=== PATIENT | male | born 1970 | race Hispanic/Latino ===

== ENCOUNTER 2023-11-09 21:06 | Emergency (ER) | payer OTHER ==
[2023-11-09] MEDS ORDERED: KETOROLAC 30 MG/ML INJ ONE (21:19)
[2023-11-09 21:28] LABS: Absolute Eosinophils 0.2 K/uL (0-0.5); Absolute Lymphocytes (CBC) 2.4 K/uL (0.7-4.9); Absolute Monocytes 0.6 K/uL (0.1-1.3); Absolute Neutrophil 4.4 K/uL (1.8-8.0); Basophils % 0.5 % (0-1.3); Eosinophils % 2.3 % (0-4.4); Hematocrit 44.1 % (39.6-49.0); Hemoglobin 15.2 g/dL (13.6-17.9); Lymphocytes % 31.7 % (15.3-44.8); MCH 32.8 pg (27.0-35.0); MCHC 34.4 g/dL (32.0-36.0); MCV 95.2 fL (80-100); MPV 10.8 fL (7.6-11.3); Monocytes % 7.8 % (3.3-12.3); Neutrophils % 57.7 % (41.7-73.7); Platelets 152 thou/uL (152-406); RBC Red Blood Cell Count 4.64 M/uL (4.33-5.43); Red Cell Distribution Width 13.1 % (12.1-15.2)
--- NOTE | 2023-11-09 21:34 | RAD REPORT ---
EXAM DESCRIPTION: RAD - Chest Single View - 11/09/2023 9:28 pm CLINICAL HISTORY: CHEST PAIN COMPARISON: Chest Single View dated 03/27/2016 FINDINGS: Lines: None. Lungs: No evidence of edema or pneumonia. Pleural: No significant pleural effusions or pneumothorax. Cardiac: The heart size is within normal limits. Mediastinum: Within normal limits. Bones: No acute fractures. Other: None IMPRESSION: No acute cardiopulmonary disease.
[2023-11-09 21:47] LABS: Anion Gap 8.6 mEq/L (5.0-15.0); Potassium 3.6 mEq/L (3.5-5.1); Troponin High Sensitivity 5.7 pg/mL (<58.9)
--- NOTE | 2023-11-10 00:03 | EDPHYS ---
Physician Documentation [facility] Name: Moses Curry Age: 53 yrs Sex: Male : 1970 Arrival Date: 11/09/2023 Time: 21:06 Bed 6 Private MD: ED Physician Jose Rafael Sterling HPI: 11/08 21:08 This 53 yrs old Male presents to ER via Unassigned with complaints of L upper ec2 back pain. 21:08 Patient arrives today for evaluation of left upper back pain is reproducible. Patient ec2 reports no falls injuries or trauma. States that he took a nitroglycerin and this improved him symptoms. Patient reports no difficulty breathing, no chest pain. Denies any abdominal pain. Patient reports he has no cardiac disease, states that he was prescribed this nitroglycerin in case he ever had chest pain. He denies any chest pain.. Historical: - Allergies: 21:12 No Known Allergies; al5 - PMHx: 21:12 high cholesterol; Gastroesophageal reflux disease; Heart murmur; al5 - PSHx: 21:12 Appendectomy; carpal tunnel surgery x2; al5 - Immunization history:: Adult Immunizations up to date. - Infectious Disease History:: Denies. - Social history:: Smoking status: Patient reports the use of cigarette tobacco products, smokes one-half pack cigarettes per day, Patient uses alcohol, had 2.5 beers per patient. ROS: 21:08 Constitutional: as per hpi ec2 Exam: 21:08 Constitutional: GEN: NAD Head: atraumatic Eyes: EOMI Ears: External ears are ec2 normal. CV: regular rate LUNGS: no respiratory distress ABD: non-distended SKIN: no evidence of rashes MSK: no evidence of trauma, reproducible left upper chest wall TTP without deformities or crepitus 21:37 ECG was reviewed by the Attending Physician. ec2 Vital Signs: 21:10 BP 127 / 82; Pulse 74; Resp 18; Temp 98.3; Pulse Ox 99% on R/A; Weight 81.65 kg; Height al5 5 ft. 8 in. ; Pain 2/10; 22:57 BP 112 / 71; Pulse 58; Resp 17; Temp 98.3; Pulse Ox 99% on R/A; Pain 0/10; bm8 11/09 00:14 BP 93 / 59; Pulse 73; Resp 17; Temp 98.3; Pulse Ox 95% ; Pain 0/10; bm8 11/08 21:10 Body Mass Index 27.37 (81.65 kg, 172.72 cm) al5 09/ 21:10 Pain Scale: Adult al5 22:57 Pain Scale: Adult bm8 11/09 00:14 Pain Scale: Adult bm8 [place] Coma Score: 11/08 21:26 Eye Response: spontaneous(4). Motor Response: obeys commands(6). Verbal Response: bm8 oriented(5). Total: 15. 22:57 Eye Response: spontaneous(4). Motor Response: obeys commands(6). Verbal Response: bm8 oriented(5). Total: 15. 11/09 00:14 Eye Response: spontaneous(4). Motor Response: obeys commands(6). Verbal Response: bm8 oriented(5). Total: 15. MDM: 11/08 21:08 Patient medically screened. ec2 21:08 Data reviewed: vital signs. ED course: Patient arrives today for reproducible left ec2 upper back wall pain. Examination remarkable for reproducible upper back pain. Will obtain cardiac workup. With patient tomorrow. Differential includes MSK pain, ACS, doubt PE or dissection.. 21:26 ED course: EKG independently reviewed and interpreted by me, shows normal sinus rhythm, ec2 rate of 69, no acute ST segment elevations, intervals are nonconcerning. . 21:36 ED course: Chest x-ray independently reviewed and interpreted by me, shows no acute ec2 intrathoracic process. . 21:55 ED course: Metabolic profile reassuring, troponin within normal ranges. Will obtain ec2 repeat EKG and troponin.. 23:05 ED course: Repeat EKG independently reviewed and interpreted by me, shows sinus rhythm, ec2 rate of 58, no acute ST segment elevations, intervals are nonconcerning, appears grossly unchanged compared to initial.. 11/09 00:02 ED course: Repeat troponin is static. Will discharge home. Return precautions given. ec2 Suspect MSK pain. . 11/08 21:08 Order name: Basic Metabolic Panel; Complete Time: 21:55 ec2 11/08 21:08 Order name: CBC with Diff; Complete Time: 21:36 ec2 11/08 21:08 Order name: Troponin HS; Complete Time: 21:55 ec2 11/08 22:59 Order name: Troponin HS; Complete Time: 00:02 bm8 11/08 21:08 Order name: XRAY Chest (1 view); Complete Time: 21:36 ec2 11/08 21:08 Order name: EKG; Complete Time: 21:09 ec2 11/08 21:08 Order name: Cardiac monitoring; Complete Time: 21:26 ec2 11/08 21:08 Order name: EKG - Nurse/Tech; Complete Time: 21:26 ec2 11/08 21:08 Order name: IV Saline Lock; Complete Time: 21:26 ec2 11/08 21:08 Order name: Labs collected and sent; Complete Time: 21:26 ec2 11/08 21:08 Order name: O2 Per Protocol; Complete Time: 21:16 ec2 11/08 21:08 Order name: O2 Sat Monitoring; Complete Time: 21:16 ec2 11/08 21:38 Order name: Misc. Order: repeat ekg/trop at 2300; Complete Time: 22:58 ec2 Administered Medications: 11/08 21:26 Drug: Ketorolac IVP 15 mg IVP once Route: IVP; Site: right antecubital; bm8 11/09 00:15 Follow up: Response: No adverse reaction 8 Disposition Summary: 11/10/23 00:03 Discharge Ordered Notes: Location: Home ec2 Condition: Stable ec2 Diagnosis - Back Pain ec2 Followup: ec2 - With: Private Physician - When: - Reason: Re-evaluation by your physician Discharge Instructions: - Discharge Summary Sheet ec2 - Acute Back Pain, Adult ec2 Forms: - Medication Reconciliation Form ec2 - Antibiotic Education ec2 - Prescription Opioid Use ec2 - Patient Portal Instructions ec2 - Leadership Thank You Letter ec2 Prescriptions: - methocarbamol 500 mg Oral tablet - take 2 tablets ORAL route 4 times per day; 20 tablet; Refills: 0, Product ec2 Selection Permitted Signatures: Dispatcher [employer] Jose Rafael John MD MD ec2 Aman Sue, RN RN bm8 Jennifer Garcia RN RN al5
--- NOTE | 2023-11-10 00:03 | ER ---
Nurse's Notes [facility] Name: Moses Curry Age: 53 yrs Sex: Male : 1970 Arrival Date: 11/09/2023 Time: 21:06 Bed 6 Private MD: Diagnosis: Back Pain Presentation: 11/08 21:10 Chief complaint: Patient states: c/o L side back pain that was sharp and stabbing al5 10/10, tender to palpate; states he took a nitro. pain decreased down to a 2/10. Coronavirus screen: At this time, the client does not indicate any symptoms associated with coronavirus-19. Ebola Screen: No symptoms or risks identified at this time. Initial Sepsis Screen: Does the patient meet any 2 criteria? No. Patient's initial sepsis screen is negative. Does the patient have a suspected source of infection? No. Patient's initial sepsis screen is negative. Risk Assessment: Do you want to hurt yourself or someone else? Patient reports no desire to harm self or others. Onset of symptoms was November 09, 2023. 21:10 Method Of Arrival: EMS: [facility] al5 21:10 Acuity: HAILEY 3 al5 Triage Assessment: 21:14 General: Appears in no apparent distress. Behavior is calm, cooperative. Pain: al5 Complains of pain in left low back and left mid back Pain currently is 2 out of 10 on a pain scale. EENT: No signs and/or symptoms were reported regarding the EENT system. Neuro: Level of Consciousness is awake, alert, obeys commands, Oriented to person, place, time, situation. Cardiovascular: Patient's skin is warm and dry. Respiratory: Airway is patent Respiratory effort is even, unlabored, Respiratory pattern is regular, symmetrical. GI: No signs and/or symptoms were reported involving the gastrointestinal system. : No signs and/or symptoms were reported regarding the genitourinary system. Derm: Skin is intact, Skin is pink, warm \T\ dry. normal. Musculoskeletal: Reports pain in left low back and left mid back. Historical: - Allergies: 21:12 No Known Allergies; al5 - PMHx: 21:12 high cholesterol; Gastroesophageal reflux disease; Heart murmur; al5 - PSHx: 21:12 Appendectomy; carpal tunnel surgery x2; al5 - Immunization history:: Adult Immunizations up to date. - Infectious Disease History:: Denies. - Social history:: Smoking status: Patient reports the use of cigarette tobacco products, smokes one-half pack cigarettes per day, Patient uses alcohol, had 2.5 beers per patient. Screenin:26 [facility] ED Fall Risk Assessment (Adult) History of falling in the last 3 months, bm8 including since admission No falls in past 3 months (0 pts) Confusion or Disorientation No (0 pts) Intoxicated or Sedated No (0 pts) Impaired Gait No (0 pts) Mobility Assist Device Used No (0 pt) Altered Elimination No (0 pt) Score/Fall Risk Level 0 - 2 = Low Risk Oriented to surroundings, Maintained a safe environment, Educated pt \T\ family on fall prevention, incl call for assistance when getting out of bed, Assessed \T\ reinforced patient's understanding of fall precautions, Hourly rounding (assess needs \T\ fall precautionary measures) done, Used ambulatory aids as needed (educated on \T\ assisted with), Used gait belt as appropriate. Abuse screen: Denies threats or abuse. Nutritional screening: No deficits noted. Tuberculosis screening: No symptoms or risk factors identified. Assessment: 21:26 Reassessment: Patient appears in no apparent distress at this time. Patient and/or bm8 family updated on plan of care and expected duration. Pain level reassessed. Patient is alert, oriented x 3, equal unlabored respirations, skin warm/dry/pink. General: Appears in no apparent distress. comfortable, Behavior is calm, cooperative, appropriate for age. Pain: Complains of pain in left mid back and left low back Pain currently is 2 out of 10 on a pain scale. Quality of pain is described as sharp. Neuro: No deficits noted. Level of Consciousness is awake, alert, obeys commands, Oriented to person, place, time, situation, Appropriate for age. Cardiovascular: Denies chest pain, Heart tones S1 S2 present Capillary refill < 3 seconds Patient's skin is warm and dry. Rhythm is sinus rhythm. Respiratory: Airway is patent Trachea midline Respiratory effort is even, unlabored, Respiratory pattern is regular, symmetrical, Breath sounds are clear bilaterally. GI: No signs and/or symptoms were reported involving the gastrointestinal system. : No signs and/or symptoms were reported regarding the genitourinary system. EENT: No signs and/or symptoms were reported regarding the EENT system. Derm: No signs and/or symptoms reported regarding the dermatologic system. Musculoskeletal: Circulation, motion, and sensation intact. Capillary refill < 3 seconds, in bilateral fingers. toes. Range of motion: intact in all extremities, Reports pain in left mid back and left low back Pain is 2 out of 10 on a pain scale. 22:57 Reassessment: Patient appears in no apparent distress at this time. Patient and/or bm8 family updated on plan of care and expected duration. Pain level reassessed. Patient is alert, oriented x 3, equal unlabored respirations, skin warm/dry/pink. Patient denies pain at this time. Patient states feeling better. Patient states symptoms have improved. 11/09 00:14 Reassessment: Patient appears in no apparent distress at this time. Patient and/or bm8 family updated on plan of care and expected duration. Pain level reassessed. Patient is alert, oriented x 3, equal unlabored respirations, skin warm/dry/pink. Patient denies pain at this time. Patient states feeling better. Patient states symptoms have improved. Vital Signs: 11/08 21:10 BP 127 / 82; Pulse 74; Resp 18; Temp 98.3; Pulse Ox 99% on R/A; Weight 81.65 kg; Height al5 5 ft. 8 in. ; Pain 2/10; 22:57 BP 112 / 71; Pulse 58; Resp 17; Temp 98.3; Pulse Ox 99% on R/A; Pain 0/10; bm8 11/09 00:14 BP 93 / 59; Pulse 73; Resp 17; Temp 98.3; Pulse Ox 95% ; Pain 0/10; bm8 11/08 21:10 Body Mass Index 27.37 (81.65 kg, 172.72 cm) al5 11/08 21:10 Pain Scale: Adult al5 22:57 Pain Scale: Adult bm8 11/09 00:14 Pain Scale: Adult bm8 [place] Coma Score: 11/08 21:26 Eye Response: spontaneous(4). Motor Response: obeys commands(6). Verbal Response: bm8 oriented(5). Total: 15. 22:57 Eye Response: spontaneous(4). Motor Response: obeys commands(6). Verbal Response: bm8 oriented(5). Total: 15. 11/09 00:14 Eye Response: spontaneous(4). Motor Response: obeys commands(6). Verbal Response: bm8 oriented(5). Total: 15. ED Course: 11/08 21:08 Patient arrived in ED. ec2 21:08 Jose Rafael Sterling MD is Attending Physician. ec2 21:11 Triage completed. al5 21:15 Arm band placed on right wrist. Patient placed in the treatment room, on a stretcher. al5 21:25 Aman Seu, RN is Primary Nurse. bm8 21:26 Patient has correct armband on for positive identification. Bed in low position. Call bm8 light in reach. Side rails up X2. Adult w/ patient. Client placed on continuous cardiac and pulse oximetry monitoring. NIBP monitoring applied. teletypesetter monitor on. Pulse ox on. NIBP on. Door closed. Noise minimized. Warm blanket given. Pillow given. Verbal reassurance given. 21:26 Initial lab(s) drawn, by me, sent to lab. EKG done, by ED staff, reviewed by Jose Rafael Sterling MD. Patient maintains SpO2 saturation greater than 95% on room air. 21:27 No provider procedures requiring assistance completed. Inserted saline lock: 20 gauge al5 in right antecubital area, using aseptic technique. 21:30 XRAY Chest (1 view) In Process Unspecified. EDMS 11/09 00:14 Provided Education on: POST ER CARE. bm8 00:14 IV discontinued, intact, bleeding controlled, No redness/swelling at site. Pressure bm8 dressing applied. Administered Medications: 11/08 21:26 Drug: Ketorolac IVP 15 mg IVP once Route: IVP; Site: right antecubital; bm8 11/09 00:15 Follow up: Response: No adverse reaction bm8 Medication: 11/08 21:26 VIS not applicable for this client. bm8 Outcome: 11/09 00:03 Discharge ordered by . ec2 00:14 Discharged to home ambulatory, with family, bm8 00:14 Condition: stable 00:14 Discharge instructions given to patient, family, Instructed on discharge instructions, follow up and referral plans. no drinking with medication, no driving heavy equipment, medication usage, safety practices, Demonstrated understanding of instructions, follow-up care, medications, Prescriptions given X 1, 00:16 Patient left the ED. bm8 Signatures: Dispatcher [employer] EDJose Rafael Schaefer MD MD ec2 Aman Sue RN RN bm8 Jennifer Garcia RN RN al5 Corrections: (The following items were deleted from the chart) 11/08 21:15 21:15 Splint/sling/ice applied as appropriate. Arm band placed on right wrist. Patient al5 placed in the treatment room, on a stretcher, al5
[2023-11-10 00:26] VITALS: TEMP 98.3
[2023-11-10 00:42] VITALS: BP 93/59; O2SAT 95
--- NOTE | 2023-11-10 12:36 | EKG ---
Test Date: 2023-11-09 Test Time: 22:55:34 Shirt Marker: JEWEL MEASUREMENT RESULTS: Intervals: Rate: 58 AK: 160 QRSD: 86 QT: 428 QTc: 420 [place]: P: 37 AK: 160 QRS: -10 T: 11 INTERPRETIVE STATEMENTS: Sinus bradycardia Otherwise normal ECG Compared to ECG 11/09/2023 21:22:48 Sinus rhythm no longer present Electronically Signed On 11-10-23 12:35:16 CDT by Justin Linares
--- NOTE | 2023-11-10 12:36 | EKG ---
Test Date: 2023-11-09 Test Time: 21:22:48 Oncology Rep Specialist: JEWEL MEASUREMENT RESULTS: Intervals: Rate: 69 MD: 164 QRSD: 92 QT: 402 QTc: 430 [place]: P: 31 MD: 164 QRS: -9 T: 14 INTERPRETIVE STATEMENTS: Normal sinus rhythm Normal ECG Compared to ECG 03/27/2016 14:49:04 No significant changes Electronically Signed On 11-10-23 12:35:21 CDT by Justin Linares
== END 2023-11-10 00:16 | disposition home or self-care (01) ==
LOC: ER 21:06
DX: M54.9 Dorsalgia, unspecified (principal); F17.210 Nicotine dependence, cigarettes, uncomplicated
CPT/HCPCS: 93005; 96374; 99285